=== PATIENT | male | born 1955 | race Caucasian/White ===

== ENCOUNTER 2020-09-13 17:01 | Emergency (ER) | payer OTHER ==
[~2020-09-13 17:01] MED LIST: CEFUROXIME500 MG PO; IBUPROFEN600 MG PO; MEDROL4 MG PO; PHENERGAN 25 MG25 M1 PO; VISTARIL 50 MG50 MG PO
[2020-09-13 17:53] LABS: RED BLOOD COUNT 5.04 M/UL (4.20-5.50); WHITE BLOOD COUNT 8.4 K/UL (4.5-11.0)
[2020-09-13 18:15] LABS: BUN/CREATININE RATIO 16 (0-10)
[2020-09-13] MEDS ORDERED: HYDROCHLOROTHIA25 MG PO (19:35)
== END 2020-09-13 20:02 | disposition home or self-care (01) ==
LOC: ER1 17:01
PROVIDERS: Emergency Medicine
DX: I10 Essential (primary) hypertension (principal); F17.200 Nicotine dependence, unspecified, uncomplicated; Z88.5 Allergy status to narcotic agent
CPT/HCPCS: 71045; 80053; 82550; 82553; 83874; 84484; 85025; 93005; 99284